=== PATIENT | female | born 1950 | race Caucasian/White ===

== ENCOUNTER 2016-09-13 06:45 | Inpatient (IN) | payer OTHER ==
[~2016-09-13 06:45] MED LIST: ALPRAZOLAM0.25 M3 PO; BREO ELLIPTA 11 EAC1 INH; CELEXA40 M2 PO; CULTURELLE1 EAC2 PO; GUMMI BEAR MUL1 EAC1 PO; PEPCID20 M1 PO; POTASSIUM 25 M25 ME1 PO; TYLENOL EXTRA500 M1 PO; VENTOLIN HFA18 G2 PO
[2016-09-13 07:33] LABS: BASO % 0.8 % (0-2); EOSINOPHIL ABSOLUTE COUNT 0.2 tho/cmm (0.0-0.7); HCT-HEMATOCRIT 35.7 % (34.0-49.0); HGB-HEMOGLOBIN 11.2 gm/dl (12.0-15.5); IMMATURE GRANULOCYTES ABSOLUTE 0.01 tho/cmm (0-0.03); IMMATURE GRANULOCYTES PERCENT 0.2 % (0-0.3); LYMPH ABSOLUTE COUNT 0.9 tho/cmm (0.8-4.5); MCH (MEAN CORPUSCULAR HGB) 26.2 pg (28.0-32.0); MCHC MEAN CORPUSCULAR HGB CONC 31.4 % (32.0-36.0); MCV (MEAN CELL VOLUME) 83.4 fl (82.0-96.0); MEAN PLATELET VOLUME 8.5 cmc (9.4-12.4); MONO % 9.1 % (0-12); MONOCYTE ABSOLUTE COUNT 0.5 tho/cmm (0.0-1.2); NEUTROPHIL ABSOLUTE COUNT 3.7 tho/cmm (1.6-8.0); NEUTROPHIL-AUTOMATED 3.7 tho/cmm (1.6-8.0); NEUTROPHILS % 69.9 % (40-80); PLATELET COUNT 373 tho/cmm (150-450); RED BLOOD COUNT 4.28 mil/cmm (4.00-5.20); RED CELL DISTRIBUTION WIDTH 16.4 % (12.4-16.4); WHITE BLOOD COUNT 5.3 tho/cmm (4.0-10.0)
[2016-09-13 07:34] LABS: INR 1.1 INR (0.9-1.1); PROTHROMBIN TIME 12.5 SECONDS (9.0-13.6)
--- NOTE | 2016-09-13 21:55 | NUR ---
VN ROUNDING-DEFFERED PATIENT IS SLEEPING. CHART REVIEWED
[2016-09-14 06:30] LABS: BASO % 0.5 % (0-2); EOS % 3.5 % (0-7); EOSINOPHIL ABSOLUTE COUNT 0.2 tho/cmm (0.0-0.7); HGB-HEMOGLOBIN 11.1 gm/dl (12.0-15.5); IMMATURE GRANULOCYTES ABSOLUTE 0.01 tho/cmm (0-0.03); IMMATURE GRANULOCYTES PERCENT 0.2 % (0-0.3); LYMPH % 16.8 % (20-45); MCHC MEAN CORPUSCULAR HGB CONC 30.8 % (32.0-36.0); MCV (MEAN CELL VOLUME) 84.3 fl (82.0-96.0); MEAN PLATELET VOLUME 8.8 cmc (9.4-12.4); MONO % 8.4 % (0-12); MONOCYTE ABSOLUTE COUNT 0.5 tho/cmm (0.0-1.2); NEUTROPHIL ABSOLUTE COUNT 4.3 tho/cmm (1.6-8.0); NEUTROPHIL-AUTOMATED 4.3 tho/cmm (1.6-8.0); NEUTROPHILS % 70.6 % (40-80); PLATELET COUNT 379 tho/cmm (150-450); RED BLOOD COUNT 4.27 mil/cmm (4.00-5.20); RED CELL DISTRIBUTION WIDTH 16.5 % (12.4-16.4); WHITE BLOOD COUNT 6.1 tho/cmm (4.0-10.0)
--- NOTE | 2016-09-14 16:04 | NUR ---
virtual care note: checked in on pt at this time. states that the RN just unhooked her chest tube from wall suction and that a practitioner from Dr Mathis's office just rounded and said she'd more than likely dc tomorrow 09/15. pt is in agreement with this information. she is in good spirits. she has no questions at this time. will wait for further orders and will check pt's chart for updates from the doctor in regards to her plan of care and dc plan. will continue to monitor.
[2016-09-15] MEDS ORDERED: TESSALON PERLE100 M1 PO (15:32)
[2016-09-16 05:55] LABS: BASO % 0.2 % (0-2); EOS % 0.9 % (0-7); EOSINOPHIL ABSOLUTE COUNT 0.1 tho/cmm (0.0-0.7); HCT-HEMATOCRIT 36.3 % (34.0-49.0); HGB-HEMOGLOBIN 11.2 gm/dl (12.0-15.5); IMMATURE GRANULOCYTES ABSOLUTE 0.01 tho/cmm (0-0.03); IMMATURE GRANULOCYTES PERCENT 0.1 % (0-0.3); LYMPH % 7.8 % (20-45); LYMPH ABSOLUTE COUNT 0.8 tho/cmm (0.8-4.5); MCH (MEAN CORPUSCULAR HGB) 26.1 pg (28.0-32.0); MCHC MEAN CORPUSCULAR HGB CONC 30.9 % (32.0-36.0); MCV (MEAN CELL VOLUME) 84.6 fl (82.0-96.0); MEAN PLATELET VOLUME 9.2 cmc (9.4-12.4); MONOCYTE ABSOLUTE COUNT 0.9 tho/cmm (0.0-1.2); NEUTROPHIL ABSOLUTE COUNT 7.9 tho/cmm (1.6-8.0); NEUTROPHIL-AUTOMATED 7.9 tho/cmm (1.6-8.0); PLATELET COUNT 356 tho/cmm (150-450); RED BLOOD COUNT 4.29 mil/cmm (4.00-5.20); RED CELL DISTRIBUTION WIDTH 16.2 % (12.4-16.4)
[2016-09-16 06:11] LABS: WHITE BLOOD COUNT 9.6 tho/cmm (4.0-10.0)
--- NOTE | 2016-09-16 15:12 | NUR ---
VIRTUAL CARE NOTE: PT DRESSED READY TO GO HOME. DISCHARGE INSTRUCTIONS GIVEN TO PT. PT DENIES ANY QUESTIONS. INFORMED FLOOR NURSE DISCHARGE TEACHING DONE.
== END 2016-09-16 16:30 | DRG 200 ==
LOC: CTSCAN 06:45 → SHSB 06:50 → 5WD 09:40
PROVIDERS: Family Medicine; ADMIT Radiology Diagnostic Radiology
PROC: 0BBK3ZX Excision of Right Lung, Percutaneous Approach, Diagnostic (ICD-10-PCS; principal; 2016-09-13)
PROC: 0W9930Z Drainage of Right Pleural Cavity with Drainage Device, Percutaneous Approach (ICD-10-PCS; 2016-09-13)
DX: J95.811 Postprocedural pneumothorax (principal); C78.7 Secondary malignant neoplasm of liver and intrahepatic bile duct; C79.51 Secondary malignant neoplasm of bone; C34.91 Malignant neoplasm of unspecified part of right bronchus or lung; J44.9 Chronic obstructive pulmonary disease, unspecified; Y84.8 Other medical procedures as the cause of abnormal reaction of the patient, or of later complication, without mention of misadventure at the time of the procedure; F41.9 Anxiety disorder, unspecified; Z87.891 Personal history of nicotine dependence
CPT/HCPCS: C1729; C1769; J2250; J3010; J7030